=== PATIENT | female | born 1970 | race African-American/Black ===

== ENCOUNTER 2016-11-23 16:41 | Emergency (ER) | payer SELFPAY ==
[~2016-11-23] VITALS: Ht 165.1 cm; Wt 59.4 kg
--- NOTE | 2016-11-23 17:04 | PHYS DOC ---
Adult General Chief Complaint Chief Complaint: ASTHMA HPI HPI Patient is a 46 year old female who presents with wheezing and shortness of breath. She states her symptoms started about 2 months ago. She was seen by DIANA and told she had a touch of pneumonia and was sent home with albuterol inhaler in addition to prednisone. She states she went to the albuterol inhaler fairly quickly and she's been using her neighbors nebulizer. She states denies any fevers chills or chest pain. She does admit to orthopnea and has been getting up at least once a night to do breathing treatment and states she feels better when she sits up in bed. She states she's been doing this for the last month. Review of Systems Review of Systems Constitutional: Denies fever or chills [] Eyes: Denies change in visual acuity, redness, or eye pain [] HENT: Denies nasal congestion or sore throat [] Respiratory: Positive for nonproductive cough and wheezing Cardiovascular: No additional information not addressed in HPI [] GI: Denies abdominal pain, nausea, vomiting, bloody stools or diarrhea [] : Denies dysuria or hematuria [] Musculoskeletal: Denies back pain or joint pain [] Integument: Denies rash or skin lesions [] Neurologic: Denies headache, focal weakness or sensory changes [] Endocrine: Denies polyuria or polydipsia [] Current Medications Current Medications Current Medications Medications (Trade) Dose Ordered Sig/Neha Start Time Stop Time Status Last Admin Dose Admin Albuterol/ Ipratropium (Duoneb) 3 ml 1X ONCE 11/23/16 18:45 11/23/16 18:46 DC 11/23/16 19:12 3 ML Azithromycin (Zithromax) 500 mg 1X ONCE 11/23/16 17:30 11/23/16 17:31 DC 11/23/16 17:25 500 MG Methylprednisolone Sodium Succinate (SOLU-Medrol 125MG VIAL) 125 mg 1X ONCE 11/23/16 17:30 11/23/16 17:31 DC 11/23/16 17:25 125 MG Prednisone (Prednisone) 50 mg 1X ONCE 11/23/16 17:30 11/23/16 17:31 Cancel Allergies Allergies Allergies Coded Allergies Type Severity Reaction Last Updated Verified No Known Drug Allergies 11/23/16 No Physical Exam Physical Exam Constitutional: Well developed, well nourished, no acute distress, non-toxic appearance. [] HENT: Normocephalic, atraumatic, bilateral external ears normal, oropharynx moist, no oral exudates, nose normal. [] Eyes: PERRLA, EOMI, conjunctiva normal, no discharge. [] Neck: Normal range of motion, no tenderness, supple, no stridor. [] Cardiovascular:Heart rate regular rhythm, no murmur [] Lungs & Thorax: Bilateral breath sounds with wheezing bilaterally Abdomen: Bowel sounds normal, soft, no tenderness, no masses, no pulsatile masses. [] Skin: Warm, dry, no erythema, no rash. [] Back: No tenderness, no CVA tenderness. [] Extremities: No tenderness, no cyanosis, no clubbing, ROM intact, no edema. [] Neurologic: Alert and oriented X 3, normal motor function, normal sensory function, no focal deficits noted. [] Psychologic: Affect normal, judgement normal, mood normal. [] Current Patient Data Vital Signs Vital Signs Date Time Temp Pulse Resp B/P (MAP) Pulse Ox O2 Delivery O2 Flow Rate FiO2 11/23/16 19:12 98 Room Air 11/23/16 18:53 83 20 123/81 (95) 11/23/16 17:04 98.2 98.2 Lab Values Laboratory Tests Test 11/23/16 16:52 11/23/16 17:20 POC Urine HCG, Qualitative Hcg negative (Negative) White Blood Count 9.0 x10^3/uL (4.0-11.0) Red Blood Count 4.65 x10^6/uL (3.50-5.40) Hemoglobin 12.7 g/dL (12.0-15.5) Hematocrit 39.5 % (36.0-47.0) Mean Corpuscular Volume 85 fL (79-100) Mean Corpuscular Hemoglobin 27 pg (25-35) Mean Corpuscular Hemoglobin Concent 32 g/dL (31-37) Red Cell Distribution Width 13.9 % (11.5-14.5) Platelet Count 281 x10^3/uL (140-400) Neutrophils (%) (Auto) 50 % (31-73) Lymphocytes (%) (Auto) 35 % (24-48) Monocytes (%) (Auto) 5 % (0-9) Eosinophils (%) (Auto) 10 % (0-3) H Basophils (%) (Auto) 1 % (0-3) Neutrophils # (Auto) 4.5 x10^3uL (1.8-7.7) Lymphocytes # (Auto) 3.2 x10^3/uL (1.0-4.8) Monocytes # (Auto) 0.4 x10^3/uL (0.0-1.1) Eosinophils # (Auto) 0.9 x10^3/uL (0.0-0.7) H Basophils # (Auto) 0.1 x10^3/uL (0.0-0.2) Sodium Level 139 mmol/L (136-145) Potassium Level 3.4 mmol/L (3.5-5.1) L Chloride Level 105 mmol/L (98-107) Carbon Dioxide Level 25 mmol/L (21-32) Anion Gap 9 (6-14) Blood Urea Nitrogen 7 mg/dL (7-20) Creatinine 1.1 mg/dL (0.6-1.0) H Estimated GFR (Cockcroft-Gault) 65.0 Glucose Level 126 mg/dL (70-99) H Calcium Level 8.9 mg/dL (8.5-10.1) Total Bilirubin 0.2 mg/dL (0.2-1.0) Direct Bilirubin 0.1 mg/dL (0.0-0.2) Aspartate Amino Transferase (AST) 18 U/L (15-37) Alanine Aminotransferase (ALT) 21 U/L (14-59) Alkaline Phosphatase 62 U/L (46-116) Creatine Kinase 107 U/L (26-192) Creatine Kinase MB (Mass) < 0.5 ng/mL (0.0-3.6) Creatine Kinase MB Relative Index % (0-4) Troponin I Quantitative < 0.017 ng/mL (0.000-0.055) SX-[id number]-Type Natriuretic Peptide 77 pg/mL (0-124) Total Protein 7.1 g/dL (6.4-8.2) Albumin 3.5 g/dL (3.4-5.0) Laboratory Tests 11/23/16 17:20 Laboratory Tests 11/23/16 17:20 EKG EKG She shows sinus rhythm at a rate of [address] beats were without any ST elevations, T- wave inversions noted in leads V1 and V2 V3, left axis deviation with incomplete right bundle branch morphology, QTC 427 ms, as interpreted by me. Radiology/Procedures Radiology/Procedures One view chest x-ray is not show any focal salt elevations, bony abnormality's, pneumothorax, as interpreted by me. Impressions: Asthma exacerbation Course & Med Decision Making Course & Med Decision Making Pertinent Labs and Imaging studies reviewed. (See chart for details) She presents to express wheezing and short of breath. She was moved over to the main ER received 2 breathing treatments, Solu-Medrol, and being discharged home now. She states she feels significant improvement. Chest x-ray doesn't show any focal consolidations. We'll discharge with a Z-Osmel as I'm not percent confidence that this is purely asthma could be a little COPD involvement. Return precautions given. She is agreeable plan and to follow-up with pulaisha. Sean Disclaimer Sean Disclaimer This electronic medical record was generated, in whole or in part, using a voice recognition dictation system. Departure Departure Impression: Primary Impression: Asthma Disposition: 01 HOME, SELF-CARE Condition: STABLE Referrals: NON,STAFF (PCP) JOSELYN GALVEZ MD Patient Instructions: Asthma, Adult, [id number] Additional Instructions: Seen today for your wheezing. Your being discharged home with an albuterol inhaler and 5 days of prednisone. You will also need to take azithromycin for the next 5 days. Please call office and schedule follow-up appointment with him or one of his partners. Return back to ER if you develop high fevers, increasing wheezing, or other concerns. Scripts Azithromycin (AZITHROMYCIN TABLET) 250 Mg Tablet 1 PKG PO UD, #6 TAB Prov: PAM WINTERS MD 11/23/16 Prednisone (PREDNISONE) 50 Mg Tablet 1 TAB PO DAILY, #5 TAB Prov: PAM WINTERS MD 11/23/16 Albuterol Sulfate (PROAIR HFA INHALER) 8.5 Gm Hfa.aer.ad 1 PUFF INH PRN Q6HRS Y for SHORTNESS OF BREATH, #1 INHALER 1 Refill Prov: PAM WINTERS MD 11/23/16 Problem Qualifiers Primary Impression: Asthma Asthma severity: mild intermittent Asthma complication type: with acute exacerbation Qualified Codes: J45.21 - Mild intermittent asthma with (acute) exacerbation PAM WINTERS MD Nov 23, 2016 17:04
[2016-11-23] MEDS ORDERED: IPRATRPIUM/ALBUTEROL 0.5/2.5MG 3 ML NEBU. ONE (17:07)
[2016-11-23 17:27] LABS: BASO # 0.1 x10^3/uL (0.0-0.2); BASO % 1 % (0-3); EOS % 10 % (0-3); HEMATOCRIT 39.5 % (36.0-47.0); HEMOGLOBIN 12.7 g/dL (12.0-15.5); LYMPH # 3.2 x10^3/uL (1.0-4.8); LYMPH % 35 % (24-48); MEAN CORPUSCULAR HEMOGLOBIN 27 pg (25-35); MEAN CORPUSCULAR HGB CONC 32 g/dL (31-37); MEAN CORPUSCULAR VOLUME 85 fL (79-100); MONO % 5 % (0-9); NEUT % 50 % (31-73); PLATELET COUNT 281 x10^3/uL (140-400); RED BLOOD COUNT 4.65 x10^6/uL (3.50-5.40); RED CELL DISTRIBUTION WIDTH 13.9 % (11.5-14.5)
[2016-11-23] MEDS ORDERED: IPRATRPIUM/ALBUTEROL 0.5/2.5MG 3 ML NEBU. NEB ONE ×2 (17:30→18:45)
[2016-11-23] MEDS ORDERED: methylPREDNISolone SOD SUCC PF 125 MG/2 ML VIAL. IV ONE (17:30)
[2016-11-23] MEDS ORDERED: AZITHROMYCIN 250 MG TABLET. PO ONE (17:30)
[2016-11-23] MEDS ORDERED: predniSONE 10 MG TABLET PO ONE (17:30)
[2016-11-23 17:39] LABS: CALCIUM 8.9 mg/dL (8.5-10.1); CREATININE 1.1 mg/dL (0.6-1.0); POTASSIUM 3.4 mmol/L (3.5-5.1)
[2016-11-23 17:47] LABS: ALBUMIN 3.5 g/dL (3.4-5.0); DIRECT BILIRUBIN 0.1 mg/dL (0.0-0.2); TOTAL BILIRUBIN 0.2 mg/dL (0.2-1.0); TOTAL PROTEIN 7.1 g/dL (6.4-8.2)
[2016-11-23 17:56] LABS: CKMB MASS < 0.5 ng/mL (0.0-3.6); CREATINE KINASE 107 U/L (26-192)
[2016-11-23] MEDS ORDERED: PROAIR HFA8.5 GM INH (19:56)
[2016-11-23] MEDS ORDERED: AZIT250T6 PO (19:56)
[2016-11-23] MEDS ORDERED: PRED50TA PO (19:56)
[2016-11-23 20:08] VITALS: BP 123/81
--- NOTE | 2016-11-24 07:50 | EKG ---
[facility] [address] [place] [address] Test Date: 2016-11-23 Test Time: 17:25:18 Pat Name: JIMENEZ PAZ Department: Room: Gender: F [employer]: : 1970 Requested By: PAM WINTERS Order Number: [id number] Reading MD: Measurements Intervals [place] Rate: 77 P: 49 NE: 170 QRS: -2 QRSD: 92 T: 25 QT: 376 QTc: 427 Interpretive Statements SINUS RHYTHM LEFTWARD AXIS INCOMPLETE RIGHT BUNDLE BRANCH BLOCK T ABNORMALITY IN ANTEROSEPTAL LEADS RI6.01 Unconfirmed report No previous ECG available for comparison
--- NOTE | 2016-11-24 09:01 | RAD ---
Indication difficulty breathing. History of asthma. History of pneumonia. A single view of the chest was obtained. No prior imaging is available. The heart and pulmonary vessels appear normal. The mediastinum has a normal appearance. The lungs are clear. IMPRESSION: No acute or focal process seen in the chest
== END 2016-11-23 20:35 | disposition home or self-care (01) ==
LOC: ER 16:41
DX: J45.21 Mild intermittent asthma with (acute) exacerbation (principal); Z79.899 Other long term (current) drug therapy
CPT/HCPCS: 36415; 71010; 80048; 80076; 81025; 82553; 83880; 84484; 85025; 93005; 94250; 94640; 96374; 99285; J2930; J7620; Q0144

== ENCOUNTER 2017-06-29 20:26 | Emergency (ER) | payer SELFPAY ==
[2017-06-29] MEDS: IPRATRPIUM/ALBUTEROL 0.5/2.5MG 3 ML NEBU. NEB (21:06)
[2017-06-29] MEDS: methylPREDNISolone SOD SUCC PF 125 MG/2 ML VIAL. IV (21:16)
== END 2017-06-29 22:35 | disposition home or self-care (01) ==
LOC: ER 20:26
DX: J45.901 Unspecified asthma with (acute) exacerbation (principal); Z98.51 Tubal ligation status; Z79.899 Other long term (current) drug therapy
CPT/HCPCS: 94640; 96374; 99284-25; J2930; J7620